=== PATIENT | female | born 1950 | race Caucasian/White ===

== ENCOUNTER → 2019-05-25 11:10 | Outpatient (CLI) | payer MEDICARE, SELFPAY ==
--- NOTE | ~2019-05-25 | MM_ITS ---
EXAMINATION: MM screening [facility] BI w agatha HISTORY: Screening mammogram TECHNIQUE: Craniocaudal and mediolateral oblique 3-D tomosynthesis images were obtained and synthetic 2-D images were generated. CAD analysis was submitted and interpreted. COMPARISON: Comparison to multiple prior studies sequentially, with oldest reviewed study dated 12/14. BREAST PARENCHYMAL COMPOSITION: There are scattered areas of fibroglandular density. FINDINGS: There is no evidence of suspicious mass, calcification, or architectural distortion to sugg est malignancy in either breast. There has been no suspicious interval change. IMPRESSION: 1. No mammographic evidence of malignancy. 2. Recommend routine screening mammography in one year. BI-RADS Category 1: Negative Reviewed, dictated and finalized at location A. NICAL SOLUTIONS ENGINEER
== END ==
PROVIDERS: PCP Internal Medicine; Visit Provider Nurse Practitioner
DX: Z12.31 Encounter for screening mammogram for malignant neoplasm of breast (principal)
CPT/HCPCS: 77063; 77067

== ENCOUNTER 2020-03-30 13:29 | Outpatient (CLI) | payer MEDICARE, SELFPAY ==
--- NOTE | ~2020-03-30 | XR_ITS ---
EXAMINATION: XR lumbar spine 2-3V DATE: 03/30/2020 13:51 INDICATION: Lumbar radiculopathy TECHNIQUE: Anteroposterior and lateral views of the lumbar spine, and cone-down lateral view of the l umbosacral junction were obtained. COMPARISON: None. FINDINGS: There is no fracture. There are 3 mm of anterolisthesis of L4 on L5. The vertebral body hei ghts are maintained. Mild loss of intervertebral disc space height is seen at L4-5 and L5-S1. Small d egenerative osteophytes project from the anterior endplates of multiple vertebral bodies. There is mi ld facet osteoarthritis of the lower lumbar spine. Calcified atherosclerosis is noted. There is mild bilateral hip osteoarthritis. Phleboliths are noted in the pelvis. Surgical clips in the right upper quadrant are likely from prior cholecystectomy. IMPRESSION: 1. Mild lumbar spondylosis without acute findings. Reviewed, dictated and finalized at location A. UNICATIONS MARKETING INTERN
== END 2020-03-30 13:30 | disposition home or self-care (01) ==
LOC: ANHIMG 13:33
PROVIDERS: PCP Internal Medicine; Visit Provider Internal Medicine
DX: M47.26 Other spondylosis with radiculopathy, lumbar region (principal)
CPT/HCPCS: 72100

== ENCOUNTER → 2020-04-27 12:10 | Outpatient (CLI) | payer MEDICARE, SELFPAY ==
--- NOTE | ~2020-04-27 | MR_ITS ---
EXAMINATION: MR lumbar spine wo con DATE: 04/27/2020 13:04 INDICATION: Radiculopathy, lumbar region. TECHNIQUE: Magnetic resonance imaging (MRI) of the lumbar spine was performed without intravenous con trast. Sequences included sagittal T2-weighted FSE, sagittal T2-weighted FS FSE, sagittal T1-weighted FSE, and axial T2-weighted FSE. COMPARISON: Lumbar spine radiographs 03/30/2020 FINDINGS: There is 8 degrees dextrocurvature of thoracolumbar spine. There is 3 mm anterolisthesis of L4 on L5. Vertebral body heights are normal. There is a 12 mm lesion of increased T2-weighted signal intensity and decreased T1-weighted signal intensity in L5 vertebral body. There is a smaller lesion in S1 segment. There is mildly decreased disc height at L3-L4 and L4-L5. The distal spinal cord sign al intensity is normal. The conus medullaris is at T12-L1. The following disc levels are specifically discussed: L1-L2: The disc does not extend beyond the endplate margin. There is mild bilateral facet joint osteo arthritis. There is no neural foraminal stenosis. There is no central canal stenosis. L2-L3: The disc is mildly bulging. There is mild bilateral facet joint osteoarthritis. There is mild bilateral neural foraminal stenosis. There is no central canal stenosis. L3-L4: The disc is bulging. There is mild right facet joint osteoarthritis. There is mild bilateral n eural foraminal stenosis. There is mild central canal stenosis. L4-L5: The disc is bulging. There is severe bilateral facet joint osteoarthritis with bilateral synov ial cysts. There is mild bilateral neural foraminal stenosis. There is moderate central canal stenosi s. L5-S1: The disc is mildly bulging. There is moderate right and severe left facet joint osteoarthritis . There is mild bilateral neural foraminal stenosis. There is mild central canal stenosis. IMPRESSION: 1. Moderate lower lumbar spondylosis. 2. Lesions in L5 and S1 segments measuring up to 12 mm. 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 Reviewed, dictated and finalized at location A. OR ENGINEER IMPRESSION: 1. Moderate lower lumbar spondylosis. 2. Lesions in L5 and S1 segments measuring up to 12 mm. 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
== END ==
PROVIDERS: PCP Internal Medicine; Visit Provider Internal Medicine
DX: M54.16 Radiculopathy, lumbar region (principal); M47.816 Spondylosis without myelopathy or radiculopathy, lumbar region
CPT/HCPCS: 72148

== ENCOUNTER → 2020-05-27 11:18 | Outpatient (CLI) | payer OTHER, SELFPAY ==
--- NOTE | ~2020-05-27 | MM_ITS ---
EXAMINATION: MM screening [facility] BI w agatha HISTORY: Screening mammogram TECHNIQUE: Craniocaudal and mediolateral oblique 3-D tomosynthesis images were obtained and synthetic 2-D images were generated. CAD analysis was submitted and interpreted. COMPARISON: May 25, 2019, 03/23/2018, 08/17/2016 bilateral digital screening mammogram examinatio ns BREAST PARENCHYMAL COMPOSITION: There are scattered areas of fibroglandular density. FINDINGS: Stable fibroglandular asymmetry. There may be a chronic large lipoma or hamartoma on the le ft. There is no evidence of suspicious mass, calcification, or architectural distortion to suggest ma lignancy in either breast. There has been no suspicious interval change. IMPRESSION: 1. No mammographic evidence of malignancy. 2. Recommend routine screening mammography in one year. BI-RADS Category 2: Benign finding(s). Reviewed, dictated and finalized at location A. LLIGENCE OPERATIONS SPECIALIST
== END ==
PROVIDERS: PCP Internal Medicine; Visit Provider Obstetrics & Gynecology
DX: Z12.31 Encounter for screening mammogram for malignant neoplasm of breast (principal)
CPT/HCPCS: 77063; 77067

== ENCOUNTER 2020-07-11 11:35 | Outpatient (CLI) | payer MEDICARE, SELFPAY | END 2020-07-11 11:36 | disposition home or self-care (01) | LOC: ANHCOVIDVC 11:35 | PROVIDERS: PCP Internal Medicine | DX: Z23 Encounter for immunization (principal) | CPT/HCPCS: 0001A; 91300 ==

== ENCOUNTER 2020-08-01 11:40 | Outpatient (CLI) | payer MEDICARE, SELFPAY | END 2020-08-01 11:41 | disposition home or self-care (01) | LOC: ANHCOVIDVC 11:40 | PROVIDERS: PCP Internal Medicine | DX: Z23 Encounter for immunization (principal) | CPT/HCPCS: 0002A; 91300 ==

== ENCOUNTER → 2021-07-18 11:31 | Outpatient (CLI) | payer MEDICARE, SELFPAY ==
--- NOTE | ~2021-07-18 | MM_ITS ---
EXAMINATION: MM screening [facility] BI w agatha HISTORY: Screening mammogram TECHNIQUE: Craniocaudal and mediolateral oblique 3-D tomosynthesis images were obtained and synthetic 2-D images were generated. CAD analysis was submitted and interpreted. COMPARISON: May 27, 2020, May 25, 2019, March 23, 2018 bilateral screening mammogram exa minations BREAST PARENCHYMAL COMPOSITION: There are scattered areas of fibroglandular density. FINDINGS: Stable fibroglandular asymmetry. There may be a chronic large lipoma or hamartoma of the le ft breast. There is no evidence of suspicious mass, calcification, or architectural distortion to sug gest malignancy in either breast. There has been no suspicious interval change. IMPRESSION: 1. No mammographic evidence of malignancy. 2. Recommend routine screening mammography in one year. BI-RADS Category 2: Benign finding(s). Reviewed, dictated and finalized at location A.
== END ==
PROVIDERS: PCP Obstetrics & Gynecology; Visit Provider Internal Medicine
DX: Z12.31 Encounter for screening mammogram for malignant neoplasm of breast (principal)
CPT/HCPCS: 77063; 77067

== ENCOUNTER → 2022-09-03 10:25 | Outpatient (CLI) | payer MEDICARE, SELFPAY ==
--- NOTE | ~2022-09-03 | MM_ITS ---
EXAMINATION: MM screening [facility] BI w agatha HISTORY: Screening TECHNIQUE: Craniocaudal and mediolateral oblique 3-D tomosynthesis images were obtained and synthetic 2-D images were generated. CAD analysis was submitted and interpreted. COMPARISON: Comparison to multiple prior studies sequentially, with oldest reviewed study dated 01/30. BREAST PARENCHYMAL COMPOSITION: The breasts are heterogeneously dense, which may obscure small masses . FINDINGS: There is no evidence of suspicious mass, calcification, or architectural distortion to sugg est malignancy in either breast. There has been no suspicious interval change. IMPRESSION: 1. No mammographic evidence of malignancy. 2. Recommend routine screening mammography in one year. BI-RADS Category 1: Negative Reviewed, dictated and finalized at location A.
== END ==
PROVIDERS: PCP Family Medicine; Visit Provider Internal Medicine
DX: Z12.31 Encounter for screening mammogram for malignant neoplasm of breast (principal)
CPT/HCPCS: 77063; 77067

== ENCOUNTER 2023-09-08 11:09 | Outpatient (CLI) | payer MEDICARE, SELFPAY ==
--- NOTE | ~2023-09-08 | MM_ITS ---
EXAMINATION: MM screening [facility] BI w agatha HISTORY: Screening TECHNIQUE: Craniocaudal and mediolateral oblique 3-D tomosynthesis images were obtained and synthetic 2-D images were generated. CAD analysis was submitted and interpreted. COMPARISON: Comparison to multiple prior studies sequentially, with oldest reviewed study dated 03/01. BREAST PARENCHYMAL COMPOSITION: Not dense: There are scattered areas of fibroglandular density. FINDINGS: There is no evidence of suspicious mass, calcification, or architectural distortion to sugg est malignancy in either breast. There has been no suspicious interval change. IMPRESSION: 1. No mammographic evidence of malignancy. 2. Recommend routine screening mammography in one year. BI-RADS Category 1: Negative Reviewed, dictated and finalized at location B.
== END 2023-09-08 11:10 ==
LOC: MICIMG 11:10
PROVIDERS: PCP Obstetrics & Gynecology; Visit Provider Family Medicine
DX: Z12.31 Encounter for screening mammogram for malignant neoplasm of breast (principal)
CPT/HCPCS: 77063; 77067

== ENCOUNTER 2024-06-04 12:36 | Outpatient (CLI) | payer MEDICARE, SELFPAY ==
--- NOTE | 2024-06-04 12:51 | ECHO_ITS ---
Patient Info Name: Violeta Del Rosario Age: 74 years : 1950 Gender: Female Ht: 63 in Wt: 154 lbs BSA: 1.78 m2 HR: 74 bpm Technical Quality: Fair Exam Date: 06/04/2024 1:01 PM Exam Location: Echo Lab Patient Status: Outpatient Admit Date: 06/04/2024 Staff Ordering Physician: Karthik Anthony MD Electronics Technology Instructor: Katt Woods RDCS Attending Provider: Karthik Anthony MD Referring Physician: Raj ZELAYA; Exam Type: CA echo doppler color flow Study Info Indications - Cardiac murmur Complete two-dimensional, color flow and Doppler transthoracic echocardiogram is performed. Summary 1. Complete two-dimensional, color flow and Doppler transthoracic echocardiogram is performed. 2. Left ventricular chamber dimension is normal. 3. There is mild concentric increased left ventricular wall thickness. 4. Left ventricular systolic function is normal, estimated at 60-65%. 5. The left ventricular diastolic function is abnormal. 6. E/e' 18 is elevated. 7. Left atrial chamber dimension is moderately enlarged. 8. Right atrial chamber dimension is mildly enlarged. 9. There is mild aortic valve sclerosis. 10. There is moderate mitral valve regurgitation. 11. There is mild tricuspid valve regurgitation. 12. Mild pulmonary hypertension, estimated pulmonary arterial systolic pressure is 46 mmHg. Left Ventricle E/e' 18 is elevated. Left ventricular chamber dimension is normal. Left ventricular systolic function is normal, estimated at 60-65%. There is mild concentric increased left ventricular wall thickness. The left ventricular diastolic function is abnormal. Right Ventricle Right ventricular systolic function is normal and with normal TAPSE 2.4 cm. Right ventricular chamber dimension is normal. Left Atria Left atrial chamber dimension is moderately enlarged. Right Atria Right atrial chamber dimension is mildly enlarged. Aortic Valve The aortic valve is trileaflet. There is mild aortic valve sclerosis. There is no aortic valve stenosis. There is no aortic valve regurgitation. Pulmonic Valve There is no pulmonic regurgitation. Mitral Valve There is no mitral valve stenosis. There is moderate mitral valve regurgitation. Tricuspid Valve There is mild tricuspid valve regurgitation. Mild pulmonary hypertension, estimated pulmonary arterial systolic pressure is 46 mmHg. Pericardium/Pleural There is no pericardial effusion. Inferior Vena Cava Normal inferior vena cava with >50% collapse upon inspiration consistent with normal right atrial pressure, 5 mmHg. Aorta The aortic root size at the sinus of Valsalva is normal. Left Ventricular Outflow Tract Name Value Normal LVOT 2D LVOT Diameter 1.9 cm LVOT Doppler LVOT Peak Velocity 117 cm/s LVOT Peak Gradient 5 mmHg LVOT Mean Gradient 3 mmHg LVOT VTI 30 cm LVOT VTI/AV VTI Ratio 0.8 LVOT Stroke Volume 83 ml LVOT CO 12.2 l/min LVOT CI 6.9 l/min/m2 Pulmonic Valve Name Value Normal RVOT Doppler RVOT Peak Gradient 2 mmHg PV Doppler PV Peak Velocity 74 cm/s PV Peak Gradient 2 mmHg Mitral Valve Name Value Normal MV Doppler MV Decel Nuckolls 922 cm/s2 MV PHT 43 ms MV Area (PHT) 5.1 cm2 4.0-5.0 MV Diastolic Function MV E Peak Velocity 137 cm/s MV A Peak Velocity 126 cm/s MV E/A 1.1 MV Decel Time 149 ms MV Annular TDI MV Septal e' Velocity 6.5 cm/s >=8.0 MV E/e' (Septal) 21.2 <=8.0 MV Lateral e' Velocity 8.2 cm/s >=10.0 MV E/e' (Lateral) 16.7 <=8.0 MV e' Average 7.36 MV E/e' (Average) 18.9 Tricuspid Valve Name Value Normal TV Regurgitation Doppler TR Peak Velocity 319 cm/s TR Peak Gradient 41 mmHg Estimated PAP/RSVP RA Pressure 5 mmHg <=5 PA Systolic Pressure 46 mmHg <36 RV Systolic Pressure 46 mmHg <36 TV Annular TDI TV Lateral Joanne s' Velocity 16.1 cm/s 9.5-18.7 Aortic Valve Name Value Normal AV Doppler AV Peak Velocity 159 cm/s AV Peak Gradient 7 mmHg AV Mean Gradient 4 mmHg AV VTI 39 cm AV Area (Cont Eq VTI) 2.1 cm2 >=3.0 AV Area (Cont Eq Jamar) 2.0 cm2 AV V1/V2 Ratio 0.74 AV Regurgitation 2D LVOT Area 2.8 cm2 Ventricles Name Value Normal LV Dimensions 2D/MM IVS Diastolic Thickness (2D) 1.2 cm 0.6-1.0 LVID Diastole (2D) 4.5 cm 3.8-5.2 LVIW Diastolic Thickness (2D) 1.0 cm 0.6-0.9 LVID Systole (2D) 3.2 cm 2.2-3.5 LVOT Diameter 1.9 cm LV Mass (2D Cubed) 175.52 g 67.00-162.00 LV Mass Index (2D Cubed) 99 g/m2 43-95 Relative Wall Thickness (2D) 0.45 LV Fractional Shortening/Ejection Fraction 2D/MM LV Fractional Shortening (2D) 31 % 27-45 LV EF (2D Teicholz) 58 % 54-74 LV Diastolic Volume (4C MOD) 82 ml LV EF (4C MOD) 57 % LV Diastolic Volume (2C MOD) 102 ml LV EF (2C MOD) 64 % LV Diastolic Volume (BP MOD) 96 ml 46-106 LV Diastolic Volume Index (BP MOD) 54 ml/m2 29-61 LV Systolic Volume (BP MOD) 39 ml 14-42 LV Systolic Volume Index (BP MOD) 22 ml/m2 8-24 LV EF (BP MOD) 60 % 54-74 LV Diastolic Length (4C) 6.8 cm LV Systolic Length (4C) 4.8 cm LV Stroke Volume (4C MOD) 46 ml Atria Name Value Normal LA Dimensions LA Volume (4C A-L) 63 ml LA Volume (BP A-L) 72 ml RA Dimensions RA Area (4C) 19.0 cm2 <=18.0 Report Signatures
--- OUTSIDE RECORDS SUMMARY | 2024-06-04 12:57 | XMS_ITS | Clinical Summary ---
Author Organization [facility] Address [address], [facility] [address] [place] [address] Phone Care Team Providers Care Emulsion Operator Name Role Phone Gabriel Jimenez MD Primary Care Provider [phone] Allergies No known active allergies Medications atorvastatin (LIPITOR) 40 MG Tablet Take 40 mg by mouth daily. Active valsartan-hydroC HLOROthiazide (DIOVAN-HCT) 320-12.5 MG Tablet Take 1 Tab by mouth daily. Active verapamil CR (VERELAN) 240 MG CAPSULE SR 24 HR Take 180 mg by mouth daily. Active metFORMIN (GLUCOPHAGE) 500 MG Tablet Take 500 mg by mouth 2 times daily (with meals). Active Calcium Citrate-Vitamin D (CALCIUM CITRATE +D PO) Take by mouth. Active Multiple Vitamins-Mineral s (MULTIVITAMIN PO) Take by mouth. Active Social History Tobacco Use Types Packs/Day Years Used Date Smoking Tobacco: Former Smokeless Tobacco: Never Alcohol Use Standard Drinks/Week Comments Yes 0 (1 standard drink = 0.6 oz pur e alcohol) Comments Unknown Sex and Gender Information Value Date Recorded Sex Assigned at Not on file Legal Sex Female 8:49 PM CDT Gender Identity Not on file Sexual Orientation Not on file Plan of Treatment Health Maintenance Due Date Last Done Comments DEXA Bone Density 1950 Hepatitis C Virus (HCV) Screening 1950 TdaP Immunization 1950 Pneumococcal Immunization (5 0+ years) (1 of 1 - PCV) 01/26/1998 Zoster Immunization (1 of 2) 01/26/1998 Respiratory Syncytial Virus (RSV) Immunization (Adult) (1 - 1-dose 75+ series) 01/26/2023 Influenza Immunization (#1) 2023 SARS-COV-2 Immunization ( season) 2023 Colonoscopy High Risk Discontinued 01/22/2018 Colonoscopy Discontinued 01/22/2018 Colorectal Cancer Screening Discontinued Cologuard Discontinued Hepatitis B Immunization Aged Out No longer eligible based on patient's age to complete this topic Immunochemical Fecal Occult Blood Discontinued Meningococcal Immunization (ACWY) Aged Out No longer eligible based on patient's age to complete this topic Rotavirus Immunization Aged Out No lo nger eligible based on patient's age to complete this topic Procedures Procedure Name Priority Date/Time Associated Diagnosis Comments COLONOSCOPY Routine 01/22/2018 from Last 3 Months or Most Recently Relevant to Health Maintenance Results * COLONOSCOPY (01/22/2018) Yaniv Chan DO PROCEDURE/MINOR SURGICAL ORDERA BLES Final Result from Last 3 Months or Most Recently Relevant to Health Maintenance Insurance MEDICARE C HUMANA Care Teams Emulsion Operator Relationship Specialty Start Date End Date Gabriel Jimenez MD [address] [facility] [place] [address] PCP - General Internal Medicine 11/28/17
--- NOTE | 2024-06-04 13:43 | ECG_ITS ---
Test Date: 2024-06-04 13:48:55 Measurements Intervals Clarence Rate: 72 P: 56 NV: 158 QRS: 19 QRSD: 87 T: 83 QT: 395 QTc: 433 Interpretive Statements SINUS RHYTHM WITH OCCASIONAL SUPRAVENTRICULAR PREMATURE COMPLEXES POSSIBLE LEFT ATRIAL ENLARGEMENT [-0.1mV P-WAVE IN V1/V2] NONSPECIFIC ST & T-WAVE ABNORMALITY BORDERLINE ECG No previous ECG available for comparison Electronically Signed On 06-05-2024 15:28:30 LABEL MACHINE OPERATOR by Phong Campbell M.D.
== END 2024-06-04 12:37 | disposition home or self-care (01) ==
PROVIDERS: PCP Family Medicine; Visit Provider Family Medicine
DX: R94.31 Abnormal electrocardiogram [ECG] [EKG] (principal); R01.1 Cardiac murmur, unspecified; I49.9 Cardiac arrhythmia, unspecified
CPT/HCPCS: 93005; 93306

== ENCOUNTER 2024-10-20 12:43 | Outpatient (CLI) | payer MEDICARE, SELFPAY ==
--- NOTE | ~2024-10-20 | MM_ITS ---
EXAMINATION: MM screening [facility] BI w agatha INDICATION: Asymptomatic, referred for screening mammogram COMPARISON: 09/08/2023 through 05/25/2019 TECHNIQUE: Digital Breast Tomosynthesis CC, MLO views of Both breasts were obtained with computer-ai ded detection to assist in interpretation of the study. FINDINGS: There are scattered areas of fibroglandular density. There is a group of microcalcifications in the inner central left breast at mid to posterior depth, c entered at 9 cm posterior to the nipple. A large fat-containing mass compatible with lipoma in the le ft breast appears unchanged. Elsewhere, there are no mammographic features of malignancy. IMPRESSION: 1. Left breast Incompletely characterized group of calcifications. 2. No evidence of malignancy in the Right breast. RECOMMENDATION: Left breast Diagnostic mammogram with true lateral, and appropriate magnification views. BI-RADS Category 0: Incomplete: Needs additional imaging evaluation. Reviewed, dictated and finalized at location B. IMPRESSION: 1. Left breast Incompletely characterized group of calcifications. 2. No evidence of malignancy in the Right breast. RECOMMENDATION: Left breast Diagnostic mammogram with true lateral, and appropriate magnificati on views. BI-RADS Category 0: Incomplete: Needs additional imaging evaluation.
== END 2024-10-20 12:44 | disposition home or self-care (01) ==
LOC: MICIMG 12:44
PROVIDERS: PCP Obstetrics & Gynecology; Visit Provider Family Medicine
DX: Z12.31 Encounter for screening mammogram for malignant neoplasm of breast (principal); R92.8 Other abnormal and inconclusive findings on diagnostic imaging of breast
CPT/HCPCS: 77063; 77067

== ENCOUNTER 2024-11-15 08:47 | Outpatient (CLI) | payer MEDICARE, SELFPAY ==
--- NOTE | ~2024-11-15 | MMUS_ITS ---
EXAMINATION: MM diagnostic [facility] LT w agatha, US breast LT limited HISTORY: Left breast calcifications TECHNIQUE: Additional 3-D tomosynthesis and spot magnification images of the left breast were perform ed and synthetic 2-D images were generated. CAD analysis was submitted and interpreted. High resoluti on limited left breast ultrasound was performed. COMPARISON: 10/20/2024, 09/08/2023 BREAST PARENCHYMAL COMPOSITION:Not Dense. There are scattered areas of fibroglandular density. FINDINGS: MAMMOGRAPHIC FINDINGS: Spot magnification views demonstrate loosely grouped punctate and amorphous calcifications at the inn er left breast. Questionable vague associated mass. Calcifications are minimally increased from prior exam. ULTRASOUND: At the 9:00 position left breast, 8 cm from nipple, there is an area of masslike dense shadowing gary uring approximately 9 mm in diameter. IMPRESSION: 9 mm area of dense masslike shadowing at the 9:00 position left breast, in the expected approximate location of the mildly increasing amorphous calcifications. Ultrasound-guided biopsy recommended to e stablish a histologic diagnosis. BI-RADS category 4, suspicious findings. Reviewed, dictated and finalized at location M. IMPRESSION: 9 mm area of dense masslike shadowing at the 9:00 position left breast, in the expected approximate location of the mildly increasing amorphous calcification s. Ultrasound-guided biopsy recommended to establish a histologic diagnosis. BI-RADS category 4, suspicious findings.
== END 2024-11-15 08:48 | disposition home or self-care (01) ==
LOC: MICIMG 08:48
PROVIDERS: PCP Family Medicine; Visit Provider Obstetrics & Gynecology
DX: R92.1 Mammographic calcification found on diagnostic imaging of breast (principal)
CPT/HCPCS: 76642; 77061; 77065; G0279

== ENCOUNTER 2024-11-23 07:43 | Outpatient (CLI) | payer MEDICARE, SELFPAY ==
--- NOTE | ~2024-11-23 | MMUS_ITS ---
PROCEDURE: US breast biopsy LT w image, MM post biopsy diagnostic LT CLINICAL HISTORY: 74-year-old female with suspicious left breast mass at 9:00 position presents for ultrasound-guided core needle biopsy procedure. COMPARISON: 11/15/2024 Following informed consent including risks, benefits, and possible complications, the patient was brought to the ultrasound suite. A time-out procedure was performed. A preliminary ultrasound of the left breast was performed, redemonstrating the targeted solid mass with posterior acoustic shadowing at 9:00, 8 cm from the nipple. The patient was prepped and draped in the usual sterile fashion. 1% lidocaine was instilled into the subcutaneous tissues. 1% lidocaine without epinephrine was injected into the deep tissues just inferior to the lesion. Approximately 15cc lidocaine was administered. A small skin savannah was made. Multiple core samples were obtained with a 14-gauge multi pass biopsy needle. A post biopsy coil Hydromark marker was placed at the biopsy site. Postprocedural mammogram of the left breast in craniocaudal and mediolateral projections reveal the post biopsy metal marker in good position. The patient tolerated the procedure well and was without immediate postprocedural complications. IMPRESSION: Successful ultrasound guided biopsy of left breast mass. A post biopsy coil Hydromark marker was placed at the biopsy site, which is seen on postprocedural mammogram. The patient tolerated the procedure well without immediate postprocedure complications. The patient was given postprocedural instructions and sent home in stable condition. Reviewed, dictated and finalized at location B. IMPRESSION: Successful ultrasound guided biopsy of left breast mass. A post bio psy coil Hydromark marker was placed at the biopsy site, which is seen on postp rocedural mammogram. The patient tolerated the procedure well without immediate postprocedure compli cations. The patient was given postprocedural instructions and sent home in sta ble condition.
--- OUTSIDE RECORDS SUMMARY | 2024-11-23 07:47 | XMS_ITS | Clinical Summary ---
Author Organization [facility] Address [address], [facility] [address] [place] [address] Phone Care Team Providers Care Watermaster Name Role Phone Gabriel Jimenez MD Primary Care Provider [phone] Allergies No known active allergies Medications atorvastatin [...] Health Maintenance Due Date Last Done Comments Hepatitis C Virus (HCV) Screening 1950 TdaP Immunization 1950 Pneumococcal Immunization (5 0+ years) (1 of 1 - PCV) 01/26/1998 Zoster Immunization (1 of 2) 01/26/1998 Respiratory Syncytial Virus (RSV) Immunization (Adult) (1 - 1-dose 75+ series) 01/26/2023 SARS-COV-2 Immunization (2023- season) 2023 Influenza Immunization (#1) 2024 Colonoscopy Discontinued 01/22/2018 Colorectal Cancer Screening Discontinued Cologuard Discontinued Hepatitis B Immunization Aged Out No longer eligible based on patient's age to complete this topic Human Papillomavirus (HPV) Immunization Aged Out No longer eligible b ased on patient's age to complete this topic [...] Maintenance Insurance MEDICARE C HUMANA Care Teams Watermaster Relationship Specialty Start Date End Date Gabriel Jimenez MD PCP - General Internal Medicine 11/28/17
--- NOTE | 2024-11-23 09:35 | S_PTH ---
PATIENT: Violeta Del Rosario LOC: [facility] U#:[id number] AGE/SX: 74/F ROOM: RE11/23/[address]: Toyin Villagomez MD : 1950 BED: DIS: 11/23/2024 SPEC #: [id number] RECD: 11/23/24 10:21 STATUS: SHANI REAjit #: [id number] LEVI: 11/23/24 09:[address]: Toyin Villagomez DEPT: [facility] Surgical RECD BY: Ольга Corea ENTERED: 11/23/24 10:21 SP TYPE: Surgical OTHR DR: Karthik Anthony MD Tissues: A - Breast Biopsy Procedures: Hematoxylin and Eosin Stain Gross and Microscopic Level 4
== END 2024-11-23 07:44 | disposition home or self-care (01) ==
PROVIDERS: PCP Family Medicine; Visit Provider Surgery
DX: N63.25 Unspecified lump in the left breast, overlapping quadrants (principal); R92.1 Mammographic calcification found on diagnostic imaging of breast; R92.8 Other abnormal and inconclusive findings on diagnostic imaging of breast; N64.1 Fat necrosis of breast; M79.89 Other specified soft tissue disorders
CPT/HCPCS: 19083; 77065; 88305; A4648